=== PATIENT | male | born 1995 | race Caucasian/White ===

== ENCOUNTER 2022-05-01 18:53 | Emergency (ER) | payer OTHER ==
[~2022-05-01] VITALS: Ht 180.3 cm; Wt 104.3 kg
== END 2022-05-01 19:59 | disposition home or self-care (01) ==
LOC: ER 18:53
DX: M53.3 Sacrococcygeal disorders, not elsewhere classified (principal); W11.XXXA Fall on and from ladder, initial encounter
CPT/HCPCS: 72220; A9270

== ENCOUNTER 2023-11-11 09:55 | Emergency (ER) | payer OTHER ==
[~2023-11-11] VITALS: Ht 180.3 cm; Wt 108.9 kg
[2023-11-11 10:53] LABS: Influenza A Negative (NEGATIVE); Influenza B Negative (NEGATIVE)
[2023-11-11 10:59] LABS: SARS-Cov-2 (COVID-19) PCR, MMC NEGATIVE (NEGATIVE)
[2023-11-11 11:40] VITALS: BP 122/78
== END 2023-11-11 11:43 | disposition home or self-care (01) ==
LOC: ER 09:55
PROVIDERS: Student in an Organized Health Care Education/Training Program
DX: R07.89 Other chest pain (principal)
CPT/HCPCS: 71046; 87804; 87807; 93005; 93010; 96372; 99285-25; A9270; J1885; U0002

== ENCOUNTER 2024-12-14 21:34 | Emergency (ER) | payer OTHER ==
[~2024-12-14] VITALS: Ht 180.3 cm; Wt 104.3 kg
[2024-12-14] MEDS ORDERED: Acetaminophen 500 MG Tab PO ONE (23:15)
[2024-12-14] MEDS ORDERED: PredniSONE 20 MG Tab PO ONE (23:15)
[2024-12-14] MEDS ORDERED: Ketorolac Tromethamine 30mg Vial IM ONE (23:15)
[2024-12-14] MEDS ORDERED: DELTASONE20 MG PO (23:16)
[2024-12-14 23:30] VITALS: BP 131/79
== END 2024-12-15 00:04 | disposition home or self-care (01) ==
LOC: ER 21:34
DX: M54.16 Radiculopathy, lumbar region (principal); Z59.89 Other problems related to housing and economic circumstances
CPT/HCPCS: 93005; 93010; 96372; 99283-25; A9270; J1885; J7512